=== PATIENT | female | born 1965 | race Caucasian/White ===

== ENCOUNTER 2020-04-17 00:38 | Outpatient (CLI) | payer OTHER, SELFPAY ==
[2020-04-17 18:04] LABS: SARS-CoV-2 RNA PCR Negative
== END 2020-04-17 00:39 | disposition home or self-care (01) ==
LOC: ANHCOVIDDT 00:38
PROVIDERS: Visit Provider Surgery Plastic and Reconstructive Surgery
DX: Z01.812 Encounter for preprocedural laboratory examination (principal); Z20.828 Contact with and (suspected) exposure to other viral communicable diseases
CPT/HCPCS: 87635; C9803; U0003

== ENCOUNTER 2020-04-20 00:35 | Day surgery (SDC) | payer OTHER, SELFPAY ==
[2020-04-09 09:27] VITALS: BMI 25.0
[2020-04-20] VITALS (7 sets, daily range): BP systolic 113–136; BP diastolic 62–88; PULSE 81–98; RESP 12–18; TEMP 36.3–36.6; O2SAT 99–100
--- NOTE | 2020-04-20 06:01 | ECG_ITS ---
Measurements Intervals [place] Rate: 79 P: 66 WI: 151 QRS: 28 QRSD: 111 T: 41 QT: 389 QTc: 448 Interpretive Statements SINUS RHYTHM INTRAVENTRICULAR CONDUCTION DELAY BASELINE ARTIFACT- V4-V6 BORDERLINE ECG Electronically Signed On 04-20-2020 13:59:28 CDT by Tom Rushing D.O.
--- NOTE | 2020-04-20 08:16 | WPDANESEPPF ---
Anes - Initial Pre Proc Eval Procedure: Operation Date: 04/20/20 14:30 Proposed Procedures p Removal Bilateral Breast Implants, Possible Capsulectomy - Vitaliy Tracy MD Date/Time: 04/20/20 08:16 Surgeon: Vitaliy Tracy MD Pre Op Diagnosis: breast implant rupture Patient Data Age: 55 Gender: F Height: 1.65 m Weight: 68.04 kg Allergies Allergy/AdvReac Type Severity Reaction Status Date / Time No Known Allergies Allergy Verified 04/20/20 13:14 Home Medications Medication Instructions Recorded Confirmed Type docusate sodium 100 mg capsule 100 mg PO DAILY #14 cap 04/06/20 04/09/20 Rx hydrocodone 5 mg-acetaminophen 325 1 tablet PO Q6H PRN #15 tablet 04/06/20 04/09/20 Rx mg tablet ondansetron HCl 4 mg tablet 4 mg PO Q8H #28 tablet 04/06/20 04/09/20 Rx Adrenal Dessicated 1 cap PO DAILY 04/09/20 History Cardiotrophin Pmd 1 cap PO DAILY 04/09/20 History Cataplex B 1 cap PO DAILY 04/09/20 History ascorbic acid (vitamin C) [Vitamin 1 g PO Q6H 04/09/20 04/20/20 History C] cholecalciferol (vitamin D3) 50 mcg PO DAILY 04/09/20 04/20/20 History [Vitamin D3] levothyroxine 75 mcg PO DAILY 04/09/20 04/20/20 History valacyclovir 500 mg PO DAILY 04/09/20 04/20/20 History Patient hx anesthesia problems: none Family hx anesthesia problems: none [facility] Past Medical History Medical History (Updated 04/19/20 @ 09:15 by Fei Baez DO) Wilkins esophagus Hypothyroidism Mitral valve prolapse Surgical History Surgical History History of breast augmentation 2006 History of partial thyroidectomy Social History Social History Smoking packs per day: 1 Smoking cigarettes per day: 20.0 Years smoked: 15 Smoking pack-years: 15.00 Smoking status: Never smoker Tobacco type: cigarettes Additional smoking assessment comments: QUIT 6 YEARS AGO Alcohol intake: current Drinks per week: 3 Substance use: never Spiritual care concerns: No Anes - Eval Final PreProcedure Day of Procedure 04/20/20 08:16 Patient weight: normal Heart: regular rate and rhythm Lungs: clear to auscultation and normal air movement Airway: Mallampati scale class II Neurological: alert and oriented Last oral intake: >/= 8 hours ASA classification: II Emergent: no Anesthetic plan: proceed Anesthesia type and monitoring: general LMA and standard monitoring Informed Consent: The patient's anesthetic plan and its attendant risks and benefits were discussed with the patient/family/POA. Questions were solicited and answers provided to the satisfaction of the patient/family/POA.
[2020-04-20] MEDS: LACTATED RINGERS 1,000 ML 30 ML IV CONT ×2 (13:00→15:11)
--- NOTE | 2020-04-20 13:47 | WPDHPUPDATE1 ---
History and Physical Update Update Date/Time: 04/20/20 13:47 History and Physical has been reviewed, including an updated exam of the patient. There are NO changes in the patient's condition. Will proceed with bilateral implant removal possible capsulectomy. Risks, benefits, and alternatives have been discussed and questions answered. Patient agrees to proceed with procedure.
[2020-04-20] MEDS: ceFAZolin 2 GM/D5W 50 ML 2 GM/50 ML BAG IVPB (14:14)
--- NOTE | 2020-04-20 15:01 | P.OP_ITS ---
Procedure Note - Detailed Date of procedure: 04/20/20 Pre-op diagnosis: breast implant rupture Post-op diagnosis: same Procedure performed: bilateral breast implant removal Description of procedure: Patient was marked in the preoperative holding area. Risks, benefits, alternatives were discussed in extensive detail. Want her to be realistic about the risks involved as well as expectations. She states that these are smooth implants she does not want to send the capsule. She understands this risk. She understands I cannot guarantee no concerns even with smooth implant and she understands the risks of ALCL. all questions answered to her satisfaction today and consent obtained. She was taken to the operating room and placed supine on the operating room table. Anesthesia provided by anesthesiology and prepped and draped in a s tandard sterile fashion. 1% lidocaine and 0.25% Marcaine with epinephrine were used to provide a field block. A 15 blade used to excise the previous scar and I continued dissection down until the implant was identified. These were smooth implants and removed bilateral. I copiously irrigated with a total of 3 L of saline solution on TUR tubing. I then placed 15 Aaron drains bilaterally brought out near the axilla and sutured in place with a 3-0 nylon. I closed the pocket with 2-0 Vicryl followed by 3-0 Monocryl in a running subcuticular 4-0 Monocryl and tissue glue. She tolerated the procedure well. Anesthesia: GLMA Surgeon: Vitaliy Tracy MD Estimated blood loss (mL): 5 Drains: Yes ( Bilateral Aaron) Packing: No Pathology: none sent ( patient declined) Complications: No immediate complications Condition: stable Disposition: PACU Findings: right breast implant ruptured saline left intact saline
[2020-04-20] MEDS: LIDO 1%/EPINEPHRINE 1:100,000 20 ML VIAL 40 ML INFILTRATE (15:07)
[2020-04-20] MEDS: fentaNYL CITRATE INJ (*CRX) 100 MCG/2 ML VIAL 25 MCG IV PUSH ×4 (15:21→15:58)
[2020-04-20] MEDS: oxyCODONE HCL (*CRX) 5 MG TAB IR PO (16:27)
--- NOTE | 2020-04-20 17:22 | SUR.PHASEII ---
1700: Bilateral breast AYESHA drains didn't have enough output to drain while at hospital. RN showed patient how to empty drains and safety pinned them to her shirt before discharge home.
== END 2020-04-20 17:05 | disposition home or self-care (01) ==
PROVIDERS: PCP Physician Assistant; Visit Provider Surgery Plastic and Reconstructive Surgery
PROC: 0HPT0JZ Removal of Synthetic Substitute from Right Breast, Open Approach (ICD-10-PCS; CPT 19328; principal; 2020-04-20 14:30)
DX: T85.41XA Breakdown (mechanical) of breast prosthesis and implant, initial encounter (principal); Y83.8 Other surgical procedures as the cause of abnormal reaction of the patient, or of later complication, without mention of misadventure at the time of the procedure; E03.9 Hypothyroidism, unspecified; I34.1 Nonrheumatic mitral (valve) prolapse; Z87.891 Personal history of nicotine dependence
CPT/HCPCS: 19328; 19330; 93005; A9270; J0690; J1100; J2250; J2405; J2704; J3010; J7120

== ENCOUNTER 2020-04-26 11:51 | Outpatient (CLI) | payer OTHER, SELFPAY ==
--- NOTE | ~2020-04-26 | US_ITS ---
EXAMINATION: US venous doppler [facility] DATE: 04/26/2020 12:29 INDICATION: Lower limb swelling TECHNIQUE: Hurd scale images without and with compression and Doppler images of the bilateral lower e xtremity veins were obtained. COMPARISON: None FINDINGS: The right common femoral vein, profunda femoral vein, femoral vein, popliteal vein, peroneal trunk, p osterior tibial veins, and greater saphenous vein are patent. The left common femoral vein, profunda femoral vein, femoral vein, popliteal vein, peroneal trunk, po sterior tibial veins, and greater saphenous vein are patent. IMPRESSION: 1. Patent bilateral lower extremity veins. No evidence of deep venous thrombosis. Reviewed, dictated and finalized at location A. [facility] IMPRESSION: 1. Patent bilateral lower extremity veins. No evidence of deep venous thrombosi s.
== END 2020-04-26 11:52 | disposition home or self-care (01) ==
PROVIDERS: PCP Physician Assistant; Visit Provider Surgery Plastic and Reconstructive Surgery
DX: M79.604 Pain in right leg (principal); M79.605 Pain in left leg
CPT/HCPCS: 93970